=== PATIENT | male | born 1970 | race Asian ===

== ENCOUNTER 2018-04-26 12:10 | Emergency (ER) | payer OTHER ==
[~2018-04-26] VITALS: Ht 154.9 cm; Wt 83.0 kg
[2018-04-26] MEDS ORDERED: FAMOTIDINE 20 MG/2 ML IVP ONE (13:00)
[2018-04-26] MEDS ORDERED: MAALOX/HYOSCYAMINE/LIDOCAINE 45 ML BTL PO ONE (13:00)
[2018-04-26] MEDS ORDERED: CYCL-259 PO (13:02)
[2018-04-26] MEDS ORDERED: FAMOTIDINE 20 MG/2 ML ONE (13:08)
[2018-04-26] MEDS ORDERED: MAALOX/HYOSCYAMINE/LIDOCAINE 45 ML BTL ONE (13:08)
--- NOTE | 2018-04-26 13:14 | NUR ---
IV STARTED - US DELAY
--- NOTE | 2018-04-26 13:24 | NUR ---
BIOLOGICAL SCIENCE AIDE AT BEDSIDE
[2018-04-26 13:25] LABS: BASOPHILS # (AUTO) 0.03 x10^3/uL (0-0.1); BASOPHILS % (AUTO) 0 % (0-1); EOSINOPHILS # (AUTO) 0.08 x10^3/uL (0-0.4); EOSINOPHILS % (AUTO) 1 % (1-7); LYMPHOCYTES # (AUTO) 2.43 x10^3/uL (1-3.4); LYMPHOCYTES % (AUTO) 25 % (22-44); MD NO; MEAN CORPUSCULAR HEMOGLOBIN 28.9 pg (27.5-34.5); MEAN CORPUSCULAR HGB CONC 32.6 g/dL (33.2-36.2); MEAN CORPUSCULAR VOLUME 88.6 fL (81-97); MEAN PLATELET VOLUME 8.2 fL (7.4-10.4); MONOCYTES # (AUTO) 0.55 x10^3/uL (0.2-0.8); MONOCYTES % (AUTO) 6 % (2-9); NEUTROPHILS % (AUTO) 68 % (42-75); PLATELET COUNT 244 x10^3/uL (130-400); RED BLOOD COUNT 6.53 x10^6/uL (4.38-5.82); RED CELL DISTRIBUTION WIDTH 14.6 % (9.4-14.8)
[2018-04-26 13:36] LABS: ALANINE AMINOTRANSFERASE 65 U/L (12-78); ALBUMIN 4.3 g/dL (3.4-5.0); ANION GAP 6 mmol/L (5-15); CALCIUM 8.5 mg/dL (8.5-10.1); CHLORIDE 107 mmol/L (98-107); CREATININE 0.95 mg/dL (0.7-1.3)
[2018-04-26 13:40] LABS: ALKALINE PHOSPHATASE 57 U/L (45-117); BILIRUBIN,TOTAL 0.6 mg/dL (0.2-1.0); TROPONIN I < 0.015 ng/mL (0.000-0.045)
--- NOTE | 2018-04-26 14:15 | NUR ---
PT STATES PAIN IMPROVED SINCE MEDICATED. APPEARS MORE COMFORTABLE
--- NOTE | 2018-04-26 14:35 | NUR ---
AMBULATED TO BATHROOM WITHOUT ASSISTANCE, STEADY GAIT
[2018-04-26 14:59] LABS: MICROSCOPIC AUTO
[2018-04-26 15:01] LABS: CULTURE INDICATED? NO
[2018-04-26 15:47] VITALS: BP 130/69
--- NOTE | 2018-04-26 15:47 | NUR ---
MD AT BEDSIDE GOING OVER RESULTS AND DISCHARGE PLAN
== END 2018-04-26 16:23 | disposition home or self-care (01) ==
LOC: ED 13:56
DX: K29.00 Acute gastritis without bleeding (principal)
CPT/HCPCS: 36415; 71045; 76700; 80053; 81001; 83690; 84484; 85025; 93005; 96374; 99284; J3490

== ENCOUNTER 2018-09-03 04:35 | Emergency (ER) | payer OTHER ==
[~2018-09-03] VITALS: Ht 154.9 cm; Wt 84.7 kg
[2018-09-03 07:16] VITALS: BP 109/72
== END 2018-09-03 08:01 | disposition home or self-care (01) ==
LOC: ED 07:55
DX: R10.13 Epigastric pain (principal); K21.9 Gastro-esophageal reflux disease without esophagitis
CPT/HCPCS: 36415; 74022; 80053; 83690; 84484; 85025; 93005; 99284